=== PATIENT | female | born 1985 | race Caucasian/White ===

== ENCOUNTER 2020-09-02 10:16 | Outpatient (REF) | payer OTHER, SELFPAY | END 2020-09-02 10:17 | disposition home or self-care (01) | LOC: HO.LAB 10:16 | PROVIDERS: Visit Provider Internal Medicine | DX: Z20.828 Contact with and (suspected) exposure to other viral communicable diseases (principal) | CPT/HCPCS: C9803; U0003 ==

== ENCOUNTER 2020-09-26 08:43 | Outpatient (REF) | payer OTHER, SELFPAY | END 2020-09-26 08:44 | disposition home or self-care (01) | LOC: HO.LAB 08:43 | PROVIDERS: Visit Provider Internal Medicine | DX: Z20.828 Contact with and (suspected) exposure to other viral communicable diseases (principal) | CPT/HCPCS: C9803; U0003 ==

== ENCOUNTER 2020-10-25 10:59 | Outpatient (REF) | payer OTHER, SELFPAY | END 2020-10-25 11:00 | disposition home or self-care (01) | LOC: HO.LAB 10:59 | PROVIDERS: Visit Provider Internal Medicine | DX: Z20.828 Contact with and (suspected) exposure to other viral communicable diseases (principal) | CPT/HCPCS: 36415; C9803; U0003 ==

== ENCOUNTER 2020-11-03 12:39 | Outpatient (REF) | payer OTHER, SELFPAY | END 2020-11-03 12:40 | disposition home or self-care (01) | LOC: HO.LAB 12:39 | PROVIDERS: Visit Provider Internal Medicine | DX: Z20.822 Contact with and (suspected) exposure to COVID-19 (principal) | CPT/HCPCS: 36415; C9803; U0003 ==

== ENCOUNTER 2020-11-18 10:53 | Outpatient (REF) | payer OTHER, SELFPAY | END 2020-11-18 10:54 | disposition home or self-care (01) | LOC: HO.LAB 10:53 | PROVIDERS: Visit Provider Internal Medicine | DX: Z20.822 Contact with and (suspected) exposure to COVID-19 (principal) | CPT/HCPCS: 36415; C9803; U0003 ==

== ENCOUNTER 2020-11-21 14:03 | Outpatient (REF) | payer OTHER, SELFPAY | END 2020-11-21 14:04 | disposition home or self-care (01) | LOC: HO.LAB 14:03 | PROVIDERS: Visit Provider Internal Medicine | DX: Z20.822 Contact with and (suspected) exposure to COVID-19 (principal) | CPT/HCPCS: 36415; C9803; U0003; U0005 ==

== ENCOUNTER 2021-04-20 09:42 | Outpatient (REF) | payer OTHER, SELFPAY ==
[2021-04-20 15:18] LABS: CT PCR NOT DETECTED (Not Detect.); NG PCR NOT DETECTED (Not Detect.)
[2021-04-23 03:37] LABS: HPV mRNA E6/E7 rflx Not Detected (Not Detected)
== END 2021-04-20 09:43 | disposition home or self-care (01) ==
LOC: HO.LAB 09:42
PROVIDERS: PCP Internal Medicine; Visit Provider Advanced Practice Midwife
DX: Z01.419 Encounter for gynecological examination (general) (routine) without abnormal findings (principal); Z11.51 Encounter for screening for human papillomavirus (HPV); Z11.3 Encounter for screening for infections with a predominantly sexual mode of transmission; Z20.2 Contact with and (suspected) exposure to infections with a predominantly sexual mode of transmission; E66.9 Obesity, unspecified; Z68.37 Body mass index [BMI] 37.0-37.9, adult
CPT/HCPCS: 87491; 87591; 87624; 88142

== ENCOUNTER → 2021-04-27 09:05 | Outpatient (BNVA) | payer MEDICAID, SELFPAY | PROVIDERS: Visit Provider Advanced Practice Midwife ==

== ENCOUNTER 2021-06-15 07:51 | Outpatient (REF) | payer OTHER, SELFPAY ==
[2021-06-15 09:08] LABS: Hematocrit 39.9 % (37-47); Hemoglobin 12.6 g/dl (12.0-16.0); Mean Corpuscular HGB Conc 31.6 g/dl (31.0-35.0); Mean Corpuscular Hemoglobin 25.5 pg (27.0-33.0); Mean Corpuscular Volume 80.8 fL (80-98); Mean Platelet Volume 11.8 fL (9.4-12.3); Platelet Count 314 X10*3/uL (160-400); Red Blood Count 4.94 X10*6/uL (4.20-5.50); Red Cell Distribution Width 15.7 % (11.0-16.0); White Blood Count 9.4 X10*3/uL (4.8-10.8)
== END 2021-06-15 07:52 | disposition home or self-care (01) ==
LOC: HO.LAB 07:51
PROVIDERS: PCP Internal Medicine; Visit Provider Physician Assistant
DX: E66.9 Obesity, unspecified (principal); I10 Essential (primary) hypertension
CPT/HCPCS: 36415; 85027

== ENCOUNTER 2023-10-10 00:51 | Day surgery (SDC) | payer BC, SELFPAY ==
[2023-10-10] VITALS (13 sets, daily range): BP systolic 91–144; BP diastolic 44–76; PULSE 70–93; RESP 12–20; TEMP 36.3–36.7; O2SAT 95–100; BMI 32.4
--- NOTE | ~2023-10-10 | CT_ITS ---
EXAMINATION: CT ABDOMEN AND PELVIS WITH CONTRAST CLINICAL INFORMATION: Severe epigastric pain COMPARISON: None available. TECHNIQUE: Multidetector volumetric images were obtained from the superior aspect of the liver through the pubic symphysis following administration 85 mL of Omnipaque 350 intravenous contrast. Sagittal and coronal reformatted images were obtained on the technologist's workstation. Oral contrast: No This CT examination was performed using dose optimization techniques as appropriate, variously including the following: *Automated exposure control *Adjustment of mA and/or kV according to patient size (this includes techniques or standardized protocols for targeted exams where dose is matched to indication/reason for exam; i.e. extremities or head) *Use of iterative reconstruction technique DLP: 732 mGy-cm FINDINGS: LUNG BASES: The visualized lung bases are unremarkable. LIVER, GALLBLADDER, AND BILIARY TREE: The liver is normal in size, shape, and attenuation. No focal hepatic lesion. There is mild central intrahepatic biliary duct dilatation. Common bile duct measures up to 9 mm. There are couple surgical clips along the inferior aspect of the gallbladder. PANCREAS: Unremarkable. SPLEEN: Unremarkable. ADRENAL GLANDS: Unremarkable. KIDNEYS AND URETERS: The kidneys are normal in size, shape, and attenuation. No hydronephrosis, hydroureter, or calculi seen. No perinephric stranding. BLADDER: Unremarkable. GASTROINTESTINAL TRACT: The appendix is dilated up to 1.4 cm, fluid-filled with mucosal hyperemia and periappendiceal fat stranding compatible with acute appendicitis. Remainder of the gastrointestinal tract is unremarkable. ABDOMINAL WALL: No significant hernia is appreciated. LYMPH NODES: Normal. VASCULAR: Unremarkable. PELVIC VISCERA: Unremarkable. OSSEOUS STRUCTURES: Unremarkable. CT/CT abdomen pelvis w IV con IMPRESSION: * Acute uncomplicated appendicitis. * There are couple surgical clips along the inferior aspect of the gallbladder. Per report, patient had a gallstone removed but the gallbladder was left in place which would explain these rather unusual surgical clips. * There is mild dilatation of the common bile duct to 9 mm, greater than expected for patient age. Per report, the patient has normal LFTs. If there is concern for biliary pathology, consider nonemergent MRCP for further evaluation. Fleischner guidelines were followed. This critical result was discussed with Dr Chamberlain at 10/10/2023 3:09 AM and it was ascertained that the content and urgency of the report was understood at the time of direct communication.
--- NOTE | 2023-10-10 01:00 | ED_ITS ---
HPI - Abdominal Pain General Chief Complaint: Abdominal Pain Stated Complaint: Abdominal/back pain Time Seen by Provider: 10/10/23 01:00 Source: patient Mode of arrival: ambulatory Limitations: no limitations History of Present Illness HPI narrative: 37 yo female with PMH of arthritis, prior tubal ligation, prior stone removal from GB (many years ago in [place]) here with c/o severe epigastric pain radiating to the back that started 930pm. Ate a custard. Has had n/v. Tried tylenol PM but threw it up. No diarrhea, no fevers. Cannot get comfortable. MD elicited complaint: abdominal pain Pertinent past history: none Onset (ago): hour(s) (930pm) Pain Consistency: constant Location: epigastric Severity: severe Quality: stabbing Radiation: back Migration to: no migration Exacerbating factors: eating and movement Relieving factors: nothing Associated symptoms: nausea and vomiting Related Data Home Medications Medication Instructions Recorded Confirmed No Known Home Meds 04/27/21 04/27/21 Allergies Allergy/AdvReac Type Severity Reaction Status Date / Time No Known Allergies Allergy Verified 04/27/21 09:25 Review of Systems Review of Systems Constitutional : No Weight loss, No Fever, No Chills ENT/Mouth : No sore throat, No Rhinorrhea Eyes: No Swelling, No Redness Cardiovascular : No Chest Pain, No SOB, NoEdema Respiratory : No Cough, No Sputum, No Wheezing Gastrointestinal : Positive Nausea, Positive Vomiting, no Diarrhea, positive abdominal Pain, No Hematochezia, No Melena Genitourinary : No Dysuria, No Urinary Frequency, No Hematuria, No Urgency Musculoskeletal : No joint pain, No Myalgias, No Joint Swelling Skin : No Skin Lesions, No rash Neuro : No Weakness, No Numbness, No Dizziness, No Headache Psych : No Anxiety/Panic, No Depression Heme/Lymph: No Bruising, No Lymphadenopathy Endocrine : No Polyuria, No Polydipsia All other systems reviewed and are negative. [facility] Past Medical History Attestation statement: The following information was validated with the patient. Source: old records reviewed Medical History Arthritis Surgical History Hx of tubal ligation Family History Family History Mother Uterine cancer Social History Social History Alcohol intake: never Patient Tobacco Use Status: Former Tobacco user Smoked in Last 30 Days: No Use of substances other than those prescribed or required for medical reasons: No Advance Directives: No Advance Directives Information Provided: Yes Patient : No Gender identity: Female Physical Exam ED Vital Signs: Vital Signs - 24 hr 10/10/23 00:54 10/10/23 02:35 Temperature 97.4 F 98 F Pulse Rate 93 71 Respiratory Rate 20 12 Blood Pressure 144/63 H 115/63 Pulse Oximetry 100 99 Oxygen Delivery Method Room Air Room Air BMI result Body Mass Index 32.4 Appearance: Alert. Oriented X3. Pacing around room in pain mild acute distress. Eyes: Pupils equal, round and reactive to light. ENT: Pharynx normal. Neck: Normal inspection. Neck supple. CVS: Normal heart rate and rhythm. Pulses normal. Respiratory: No respiratory distress. Breath sounds normal. Abdomen: Soft and moderate epigastric pain but no rebound has pain on R side as well Skin: Skin warm and dry. Normal skin color. Normal skin turgor. Extremities: No lower extremity edema. No calf ttp Neuro: Oriented X 3. No motor deficit. No sensory deficit. Course Course Course Narrative: at this time infection suspected - zosyn ordered 308am Reevaluation(s) Reevaluation #1: feels better - repeat exam upper abdominal pain improved has RLQ pain pain improved with morphine Medical Decision Making Medical Decision Making MDM Narrative: 37 yo female with PMH of arthritis, prior tubal ligation, prior stone removal from GB but GB was not removed (many years ago in [place]) here with c/o severe epigastric pain radiating to back at this time will need basic labs, EKG, IV morphine for pain and CT scan for perforation, pancreatitis, could be just gastritis as well. Differential Diagnosis Differential Diagnoses: The differential diagnosis associated with the presentation includes pancreatitis, retained stone, perforation, gastritis, abdominal pain Admission/Observation Consideration of admission/observation: Escalation of care including admission/observation considered will admit overnight for surgical consultation Consult Healthcare Provider Management of the patient was discussed with: Rubber Down (surgery aware) Lab Data [facility] Lab Attestation statement: I reviewed the patient's lab results. 10/10/23 01:33 10/10/23 01:33 Labs: Lab Results 10/10/23 10/10/23 10/10/23 Range/Units 01:33 02:38 03:38 WBC 14.1 H (4.8-10.8) X10*3/uL RBC 4.74 (4.20-5.50) X10*6/uL Hgb 12.4 (12.0-16.0) g/dl Hct 37.5 (37.0-47.0) % MCV 79.1 L (80.0-98.0) fL MCH 26.2 L (27.0-33.0) pg MCHC 33.1 (31.0-35.0) g/dl RDW 14.3 (11.0-16.0) % Plt Count 406 H (160-400) X10*3/uL MPV 9.9 (9.4-12.3) fL Immature Gran % (Auto) 0.4 (0.0-0.4) % Neut % (Auto) 81.9 H (45-73) % Lymph % (Auto) 11.0 L (20-40) % [place] % (Auto) 5.5 (2-11) % Eos % (Auto) 0.8 (0-4) % Baso % (Auto) 0.4 (0-2) % Lymph # (Auto) 1.6 (1.2-4.9) X10*3/uL [place] # (Auto) 0.8 (0.1-1.2) X10*3/uL Eos # (Auto) 0.1 (0.0-0.4) X10*3/uL Baso # (Auto) 0.1 (0.0-0.2) X10*3/uL Abs Immat Gran (auto) 0.06 H (0.00-0.03) X10*3/uL Absolute Neuts (auto) 11.6 H (2.0-8.3) x10*3/uL Absolute Nucleated RBC 0.000 (0.0-0.012) X10*3/uL Nucleated RBC % (auto) 0.0 (0.0-0.2) /100WBC Sodium 138 (135-145) mmol/L Potassium 4.0 (3.3-5.1) mmol/L Chloride 103 (96-108) mmol/L Carbon Dioxide 25 (22-29) mmol/L Anion Gap 14 (12-20) BUN 16 (9-16) mg/dL Creatinine 0.86 (0.5-1.4) mg/dL Estim Creat Clear Calc 93.9 Estimated GFR > 60 Random Glucose 112 (60-115) mg/dL Lactic Acid 0.7 (0.5-2.0) mmol/L Calcium 9.7 (8.4-10.2) mg/dL Total Bilirubin 0.4 (0.0-1.0) mg/dL Direct Bilirubin 0.2 (0.0-0.5) mg/dL AST 17 (5-31) U/L ALT 15 (0-31) U/L Alkaline Phosphatase 58 (39-117) U/L Total Protein 8.0 (6.5-8.0) g/dL Albumin 4.4 (3.5-5.0) g/dL Lipase 15 (8-78) U/L Urine Color Dark Yellow Urine Appearance Clear Urine pH 6.5 (5.0-9.0) Ur Specific [place] >= 1.030 H (1.005-1.025) Urine Protein 100 (2+) H (Neg-Trace) mg/dL Urine Glucose (UA) Negative (Negative) mg/dL Urine Ketones 15 (Negative) mg/dL Urine Blood Negative (Negative) Urine Nitrite Negative (Negative) Ur Leukocyte Esterase Negative (Negative) Urine RBC 0-2 (0-2) /HPF Urine WBC 0-5 (0-5) /HPF Ur Squamous Epith Cells 6-10 (0-2) /HPF Urine Bacteria 1+ (None Seen) Hyaline Casts 0-2 (0-2) /LPF Urine Test NEGATIVE (NEGATIVE) Independent Interpretation I performed an independent interpretation of an: EKG and Ultrasound Interpretation: Rate: 79 Rhythm: NSR [place]: normal Normal P waves. Normal LUC. Normal QRS complex. ST T wave : no ADELIA, inverted t wave V1 qTC: normal prior studies: no acute ischemia The study has been interpreted contemporaneously by me. . Radiology Impression Discussion of test interpretation with radiology: I discussed test interpretation with the radiologist and I have reviewed the radiologist's reading. Radiologist Impression: call from Radiology 302am - acute appendicitis 1.4cm, inflammed periappendiceal inflammation clips along GB - GB is intact looks normal Independent Historian Clinical information obtained from an independent historian. History obtained from or confirmed by: Spouse External Record Review External record reviewed: Office record Medications Administered Generic Name Dose Route Start Last Admin Trade Name Freq PRN Reason Stop Dose Admin Sodium Chloride 1,000 mls @ 100 mls/hr 10/10/23 04:00 10/10/23 04:28 Ns IVCONT 100 mls/hr .Q10H FILOMENA Administration Discontinued Medications Generic Name Dose Route Start Last Admin Trade Name Freq PRN Reason Stop Dose Admin Famotidine 20 mg 10/10/23 01:06 10/10/23 01:22 Famotidine/Pf 20 Mg/2 Ml Vial IVPUSH 10/10/23 01:07 20 mg ONCE ONE Administration Sodium Chloride 1,000 mls @ 999 mls/hr 10/10/23 01:15 10/10/23 02:57 Ns IV 10/10/23 02:15 Infused .Q1H1M FILOMENA Infusion Sodium Chloride 1,000 mls @ 999 mls/hr 10/10/23 03:00 10/10/23 04:27 Ns IV 10/10/23 04:00 Infused .Q1H1M FILOMENA Infusion Piperacillin Sod/Tazobactam 50 mls @ 100 mls/hr 10/10/23 03:07 10/10/23 04:15 Sod 3.375 gm/ Sodium Chloride IV 10/10/23 03:36 Infused ONCE ONE Infusion Iohexol 85 ml 10/10/23 02:20 10/10/23 02:20 Iohexol 350 Mg/Ml 100 Ml Infus..Btl IV 10/10/23 02:21 85 ml ONCE ONE Administration Ketorolac Tromethamine 15 mg 10/10/23 01:06 10/10/23 01:22 Ketorolac Tromethamine 15 Mg/Ml Vial IVPUSH 10/10/23 01:07 15 mg ONCE ONE Administration Morphine Sulfate 4 mg 10/10/23 01:09 10/10/23 01:22 Morphine Sulfate 4 Mg/Ml Cartridge IVPUSH 10/10/23 01:10 4 mg ONCE ONE Administration Protocol Ondansetron HCl 4 mg 10/10/23 01:06 10/10/23 01:22 Ondansetron Hcl 4 Mg/2 Ml Vial IVPUSH 10/10/23 01:07 4 mg ONCE ONE Administration Critical Care Time Critical Care Time Critical Care Time: Yes Total Critical Care Time: 35 Attestation: pain improved with IV morphine, admission for appendicitis. I attest to this time spent taking care of the patient Discharge Plan Discharge Clinical Impression: Abdominal pain Qualifiers: Abdominal location: epigastric Qualified Code(s): R10.13 - Epigastric pain Acute appendicitis Qualifiers: Acute appendicitis type: with localized peritonitis Appendicitis gangrene presence: without gangrene Appendicitis perforation presence: without perforation Appendicitis abscess presence: without abscess Qualified Code(s): K 35.30 - Acute appendicitis with localized peritonitis, without perforation or gangrene Patient Disposition: Admitted As Inpatient
--- NOTE | 2023-10-10 01:11 | ECG_ITS ---
Test Reason : EPIGASTRIC PAIN Blood Pressure : / mmHG Vent. Rate : 079 BPM Atrial Rate : 079 BPM P-R Int : 152 ms QRS Dur : 082 ms QT Int : 372 ms P-R-T Axes : 076 068 030 degrees QTc Int : 426 ms Normal sinus rhythm Normal ECG No previous ECGs available Referred By: Eboni Chamberlain Electronically Signed By:JAIME CERVANTES MD
[2023-10-10] MEDS: Morphine Sulfate 4 MG/ML CARTRIDGE IVPUSH (01:22)
[2023-10-10] MEDS: Ketorolac Tromethamine 15 MG/ML VIAL IVPUSH (01:22)
[2023-10-10] MEDS: ondansetron HCL 4 MG/2 ML VIAL IVPUSH ×2 (01:22→06:40)
[2023-10-10] MEDS: Famotidine/PF 20 MG/2 ML VIAL IVPUSH (01:22)
[2023-10-10] MEDS: 0.9 % Sodium Chloride 1,000 ML 999 ML IV ×2 (01:22→02:58)
--- NOTE | 2023-10-10 01:30 | PC.NURSE ---
this rn assumed care of pt pt placed on secured entrance monitor iv placed in L AC. pt tolerated well. pt medicated according to mar pt spouse at bedside
[2023-10-10 01:38] LABS: MANUAL DIFF FLAG NO
[2023-10-10 01:39] LABS: Basophils Absolute Auto 0.1 X10*3/uL (0.0-0.2); Basophils Percent Auto 0.4 % (0-2); Eosinophils Absolute Auto 0.1 X10*3/uL (0.0-0.4); Eosinophils Percent Auto 0.8 % (0-4); Hematocrit 37.5 % (37.0-47.0); Hemoglobin 12.4 g/dl (12.0-16.0); Imm Gran Abs Auto 0.06 X10*3/uL (0.00-0.03); Imm Gran Pct Auto 0.4 % (0.0-0.4); Lymphocytes Absolute Auto 1.6 X10*3/uL (1.2-4.9); Mean Corpuscular HGB Conc 33.1 g/dl (31.0-35.0); Mean Corpuscular Hemoglobin 26.2 pg (27.0-33.0); Mean Corpuscular Volume 79.1 fL (80.0-98.0); Mean Platelet Volume 9.9 fL (9.4-12.3); Monocytes Absolute Auto 0.8 X10*3/uL (0.1-1.2); Monocytes Percent Auto 5.5 % (2-11); Neutrophils Absolute Auto 11.6 x10*3/uL (2.0-8.3); Neutrophils Percent Auto 81.9 % (45-73); Platelet Count 406 X10*3/uL (160-400); Red Blood Count 4.74 X10*6/uL (4.20-5.50); Red Cell Distribution Width 14.3 % (11.0-16.0); White Blood Count 14.1 X10*3/uL (4.8-10.8)
[2023-10-10 01:55] LABS: Alanine Aminotransferase 15 U/L (0-31); Albumin Level 4.4 g/dL (3.5-5.0); Alkaline Phosphatase 58 U/L (39-117); Anion Gap 14 (12-20); Aspartate Amino Transferase 17 U/L (5-31); Bilirubin Direct 0.2 mg/dL (0.0-0.5); Bilirubin Total 0.4 mg/dL (0.0-1.0); Blood Urea Nitrogen 16 mg/dL (9-16); Calcium 9.7 mg/dL (8.4-10.2); Carbon Dioxide 25 mmol/L (22-29); Chloride 103 mmol/L (96-108); Creatinine Clr Calc Pharmacy 93.9; Estimated Glomerular Filt Rate > 60; Glucose Random 112 mg/dL (60-115); Lipase 15 U/L (8-78); Sodium 138 mmol/L (135-145)
[2023-10-10] MEDS: iohexoL 350 MG/ML 100 ML INFUS..BTL 85 ML IV (02:20)
[2023-10-10 02:45] LABS: Appearance Urine Clear; Color Urine Dark Yellow; Glucose Urine UA Negative (Negative); Leukocyte Esterase Urine Negative (Negative); Nitrite Urine Negative (Negative); PH 6.5 (5.0-9.0); Specific Gravity - Urine >= 1.030 (1.005-1.025); UMIC TRIGGER UACC YES; Urine Blood Negative (Negative); Urine Ketones 15 mg/dL (Negative); Urine Protein 100 (2+) mg/dL (Neg-Trace)
[2023-10-10 02:47] LABS: UPreg QC Valid YES; Urine Pregnancy NEGATIVE (NEGATIVE)
[2023-10-10 02:50] LABS: Bacteria Urine 1+ (None Seen); Hyaline Casts Urine 0-2 /LPF (0-2); RBC Urine 0-2 /HPF (0-2); WBC Urine 0-5 /HPF (0-5)
[2023-10-10] MEDS: Piperacillin Sodium/Tazobactam 3.375 GM in 0.9 % Sodium Chloride 50 ML IV ×2 (03:40→08:42)
[2023-10-10 03:53] LABS: Lactic Acid 0.7 mmol/L (0.5-2.0)
[2023-10-10] MEDS: 0.9 % Sodium Chloride 1,000 ML 100 ML IVCONT (04:28)
--- NOTE | 2023-10-10 05:00 | PC.NURSE ---
lights dimmed pt denies pain at this time. pt encouraged to rest educated on use of call morris setswana interpreture utilized
[2023-10-10] MEDS: Ketorolac Tromethamine 30 MG/ML VIAL IVPUSH (06:40)
--- NOTE | 2023-10-10 07:29 | PC.NURSE ---
Patient resting comfortably on stretcher, respirations equal and unlabored. Patient NPO for planned surgery later today, patient aware of plan. Call morris within reach.
[2023-10-10] MEDS: Acetaminophen 1,000 MG/100 ML PIGGYBACK 400 MG IV (07:54)
--- NOTE | 2023-10-10 08:17 | PHA.MEDREC ---
Pharmacy Consult ? Medication Reconciliation Pharmacy has completed the medication reconciliation.
--- NOTE | 2023-10-10 09:08 | PM.HPGS ---
History of Present Illness History of Present Illness Date of Service: 10/10/23 Chief complaint: Abdo pain Narrative: Alanis Sanon is a 37 year old female , relatively healthy, presents with approximately 1 day history of progressively worsening epigastric discomfort which relocated to the right lower quadrant. Because of progression of symptoms, patient presented to the emergency department. Workup including CT scan demonstrated findings consistent with acute appendicitis. Chart was reviewed patient evaluated. Past surgical history laparoscopic cholecystectomy PMFSH Past Medical History Medical History Arthritis Family History Family History Mother Uterine cancer Surgical History Surgical History Hx of tubal ligation Social History Social History Alcohol intake: never Patient Tobacco Use Status: Former Tobacco user Smoked in Last 30 Days: No Use of substances other than those prescribed or required for medical reasons: No Advance Directives: No Advance Directives Information Provided: Yes Patient : No Gender identity: Female Meds Allergies Allergy/AdvReac Type Severity Reaction Status Date / Time No Known Allergies Allergy Verified 04/27/21 09:25 Active Medications: Current Medications Acetaminophen (Acetaminophen 325 Mg Tablet) 650 mg PO Q6H PRN PRN Reason: Pain, Mild (Pain Scale 1-3) Sodium Chloride (Ns) 1,000 mls @ 100 mls/hr IVCONT .Q10H [facility] Last Admin: 10/10/23 04:28 Dose: 100 mls/hr Piperacillin Sod/Tazobactam (Sod 3.375 gm/ Sodium Chloride) 50 mls @ 100 mls/hr IV 0000,0800,1600 [facility] Last Admin: 10/10/23 08:42 Dose: 100 mls/hr Ketorolac Tromethamine (Ketorolac Tromethamine 30 Mg/Ml Vial) 30 mg IVPUSH Q6H PRN PRN Reason: Pain, Moderate(Pain Scale 4-6) Stop: 10/15/23 03:54 Last Admin: 10/10/23 06:40 Dose: 30 mg Ondansetron HCl (Ondansetron Hcl 4 Mg/2 Ml Vial) 4 mg IVPUSH Q8H PRN PRN Reason: Nausea and Vomiting Last Admin: 10/10/23 06:40 Dose: 4 mg Sodium Chloride (0.9 % Sodium Chloride Flush 3 Ml Syringe) 3 ml IVFLUSH QSHIFT [facility] Last Admin: 10/10/23 07:32 Dose: Not Given Home Medications Medication Instructions Recorded Confirmed Last Taken Type No Known Home Meds 04/27/21 10/10/23 Unknown History Physical Exam Vital Signs: Vital Signs: Last Vital Signs Temp 97.9 F 10/10/23 06:02 Pulse 70 10/10/23 06:02 Resp 18 10/10/23 06:02 BP 106/67 10/10/23 06:02 Pulse Ox 99 10/10/23 02:35 O2 Del Method Room Air 10/10/23 06:02 BMI result Body Mass Index 32.4 Chest: Other: chest breath sounds bilaterally, HS 1 in 2 GI: Other: abdomen very corpulent. Marked right lower quadrant localized rebound tenderness. Remain abdomen benign. Results Results Labs: Short CBC 10/10/23 Range/Units 01:33 WBC 14.1 H (4.8-10.8) X10*3/uL Hgb 12.4 (12.0-16.0) g/dl Hct 37.5 (37.0-47.0) % Plt Count 406 H (160-400) X10*3/uL BMP 10/10/23 01:33 Sodium 138 Potassium 4.0 Chloride 103 Carbon Dioxide 25 BUN 16 Creatinine 0.86 Calcium 9.7 Liver Function 10/10/23 Range/Units 01:33 Total Bilirubin 0.4 (0.0-1.0) mg/dL Direct Bilirubin 0.2 (0.0-0.5) mg/dL AST 17 (5-31) U/L ALT 15 (0-31) U/L Alkaline Phosphatase 58 (39-117) U/L Albumin 4.4 (3.5-5.0) g/dL Urine 10/10/23 Range/Units 02:38 Urine Color Dark Yellow Urine Appearance Clear Urine pH 6.5 (5.0-9.0) Ur Specific [place] >= 1.030 H (1.005-1.025) Urine Protein 100 (2+) H (Neg-Trace) mg/dL Urine Glucose (UA) Negative (Negative) mg/dL Urine Test NEGATIVE (NEGATIVE) Assessment and Plan (1) Acute appendicitis: Qualifiers: Acute appendicitis type: with localized peritonitis Appendicitis abscess presence: without abscess Appendicitis gangrene presence: without gangrene Appendicitis perforation presence: without perforation Qualified Code(s): K35.30 - Acute appendicitis with localized peritonitis, without perforation or gangrene Status: Acute Plan Risks, benefits, alternatives of laparoscopic possible open cholecystectomy reviewed with the patient and included but not limited to bleeding, infection, numbness, pain, scarring, bowel or bladder injury or leak and the patient wished to proceed. All questions answered. Arrangements were made for this as an add on case for today. Quality Stroke Does the patient have a stroke diagnosis?: No VTE Prior VTE?: No VTE Risk Level:: Surgical - low VTE Device Contraindication: N/A - Device Ordered VTE Drug Contraindication: N/A - Med Ordered Procedures Date of Service Date of Service: 10/10/23
--- NOTE | 2023-10-10 12:00 | PC.NURSE ---
spoke to main desk at surgery - plan is for [id number] to the OR.
--- NOTE | 2023-10-10 13:33 | P.CONAN_ITS ---
HPI - Anesthesia Eval Consult details Narrative: for sri HANSENSH Active Problems Active Problems: All Active Problems (Updated 10/10/23 @ 03:09 by Eboni Chamberlain DO) Acute appendicitis (Acute) Abdominal pain (Acute) Obesity (Acute) Encounter for annual routine gynecological examination (Acute) Past Medical History Medical History Arthritis Family History Family History Mother Uterine cancer Family history of problems with anesthesia: No Surgical History Surgical History Hx of cholecystectomy Hx of section Hx of tubal ligation History of Problems with Anesthesia: No Social History Social History Alcohol intake: never Patient Tobacco Use Status: Former Tobacco user Quit Date: 2016 Smoked in Last 30 Days: No Use of substances other than those prescribed or required for medical reasons: No Are you DNR?: No Advance Directives: No Advance Directives Information Provided: Yes Patient : No Gender identity: Female Meds Allergies Allergy/AdvReac Type Severity Reaction Status Date / Time No Known Allergies Allergy Verified 10/10/23 13:19 Active Medications: Current Medications Acetaminophen (Acetaminophen 325 Mg Tablet) 650 mg PO Q6H PRN PRN Reason: Pain, Mild (Pain Scale 1-3) Sodium Chloride (Ns) 1,000 mls @ 100 mls/hr IVCONT .Q10H [facility] Last Admin: 10/10/23 04:28 Dose: 100 mls/hr Piperacillin Sod/Tazobactam (Sod 3.375 gm/ Sodium Chloride) 50 mls @ 100 mls/hr IV 0000,0800,1600 [facility] Last Infusion: 10/10/23 10:06 Dose: Infused Ketorolac Tromethamine (Ketorolac Tromethamine 30 Mg/Ml Vial) 30 mg IVPUSH Q6H PRN PRN Reason: Pain, Moderate(Pain Scale 4-6) Stop: 10/15/23 03:54 Last Admin: 10/10/23 06:40 Dose: 30 mg Ondansetron HCl (Ondansetron Hcl 4 Mg/2 Ml Vial) 4 mg IVPUSH Q8H PRN PRN Reason: Nausea and Vomiting Last Admin: 10/10/23 06:40 Dose: 4 mg Sodium Chloride (0.9 % Sodium Chloride Flush 3 Ml Syringe) 3 ml IVFLUSH QSHIFT [facility] Last Admin: 10/10/23 07:32 Dose: Not Given Home Medications Medication Instructions Recorded Confirmed Last Taken Type No Known Home Meds 04/27/21 10/10/23 Unknown History Exam Height,Weight and Vital Signs: Height 5 ft 4 in Weight 85.7 kg Last Vital Signs Temp 97.9 F 10/10/23 13:13 Pulse 81 10/10/23 13:13 Resp 15 10/10/23 13:13 BP 141/76 H 10/10/23 13:13 Pulse Ox 99 10/10/23 13:13 O2 Del Method Room Air 10/10/23 13:13 Pertinent Lab Results Pertinent Lab Results: Laboratory Tests 10/10/23 10/10/23 10/10/23 01:33 02:38 03:38 WBC 14.1 H RBC 4.74 Hgb 12.4 Hct 37.5 MCV 79.1 L MCH 26.2 L MCHC 33.1 RDW 14.3 Plt Count 406 H MPV 9.9 Immature Gran % (Auto) 0.4 Neut % (Auto) 81.9 H Lymph % (Auto) 11.0 L [place] % (Auto) 5.5 Eos % (Auto) 0.8 Baso % (Auto) 0.4 Lymph # (Auto) 1.6 [place] # (Auto) 0.8 Eos # (Auto) 0.1 Baso # (Auto) 0.1 Abs Immat Gran (auto) 0.06 H Absolute Neuts (auto) 11.6 H Absolute Nucleated RBC 0.000 Nucleated RBC % (auto) 0.0 Sodium 138 Potassium 4.0 Chloride 103 Carbon Dioxide 25 Anion Gap 14 BUN 16 Creatinine 0.86 Estim Creat Clear Calc 93.9 Estimated GFR > 60 Random Glucose 112 Lactic Acid 0.7 Calcium 9.7 Total Bilirubin 0.4 Direct Bilirubin 0.2 AST 17 ALT 15 Alkaline Phosphatase 58 Total Protein 8.0 Albumin 4.4 Lipase 15 Urine Color Dark Yellow Urine Appearance Clear Urine pH 6.5 Ur Specific [place] >= 1.030 H Urine Protein 100 (2+) H Urine Glucose (UA) Negative Urine Ketones 15 Urine Blood Negative Urine Nitrite Negative Ur Leukocyte Esterase Negative Urine RBC 0-2 Urine WBC 0-5 Ur Squamous Epith Cells 6-10 Urine Bacteria 1+ Hyaline Casts 0-2 Urine Test NEGATIVE Airway Mallampati Class: II TM Dist: >3cm Neck ROM: Full Heart: rrr Lungs: cta Assessment and Plan Assessment Anesthesia Assessment: Anesthesia Plan Discussed and Chart Reviewed Final Anesthetic Review Family History of Problems with Anesthesia: No History of Problems with Anesthesia: No ASA Class: I Final Preanesthetic Review: No Changes in Pt Med Stat, Meds/Allgs Chart Reviewed, Consent Obtained/Reviewed and Anes Risks/Benef Reviewed Patient Risk: Low Procedure Risk: Low Anesthetic Plan Anesthetic Plan: GA Disposition: Standard PACU
--- NOTE | 2023-10-10 14:30 | W.PM.OPN ---
Operative Note Operative Note Date of Service: 10/10/23 Narrative: Preoperative diagnosis: [] acute appendicitis Postop diagnosis: [] same Procedure [] laparoscopic appendectomy Surgeon: [] Grady Manager Technical Services: [] Bridgett Type of Anesthesia: [] general Indication for surgery: [] edematous inflamed appendix. No gross evidence of perforation. Findings: [] Patient brought to the operating room, placed on operative table supine position, after adequate level of general anesthesia was induced, the patient's abdomen, which was moderately corpulent, was prepped and draped in usual sterile fashion. Using a supraumbilical curvilinear incision, De Paz technique was used to insufflate the abdominal cavity to 15 mm of CO2. The lower midline And suprapubic ports were placed under direct laparoscopic view, and the patient placed in Trendelenburg position, tilted to the left. Findings were as noted above. Appendix was grasped using laparoscopic graspers and brought onto the field. Its mesentery was sequentially taken down using double firing of ligature device. Appendix was then transected at the cecal base using endoscopic GABY stapler. Specimen was placed in an Endo-Catch bag, and retrieved through the umbilical port. Abdominal cavity was very copiously irrigated , and secured hemostasis. All ports were removed under direct laparoscopic view. Wounds were closed in the following manner; umbilical wound had is fascia reapproximated using interrupted 0 Vicryl sutures. Skin wounds were closed using subcuticular 4-0 Vicryl sutures followed by Steri-Strips and sterile dressings. Wounds were infiltrated 0.5% Marcaine at completion. Sponge, needle, and instrument counts reported correct. Patient tolerated the procedure well and emerged anesthesia in stable condition . EBL minimal
--- NOTE | 2023-10-10 16:10 | MHC.CM.PN ---
PT DISCHARGED HOME WITH NO SERVICES PRIOR TO BEING SEEN BY CM PER EMR, PT INDEPENDENT WITH CARE PT TO ARRANGE TRANSPORT
== END 2023-10-10 16:45 | disposition home or self-care (01) ==
LOC: HO.ED 03:09 → HO.EDOVER 07:17 → HO.SSS 16:19
PROVIDERS: Emergency Provider Emergency Medicine; PCP Internal Medicine; Visit Provider Surgery
PROC: 0DTJ4ZZ Resection of Appendix, Percutaneous Endoscopic Approach (ICD-10-PCS; CPT 44970; principal; 2023-10-10 13:00)
DX: K35.30 Acute appendicitis with localized peritonitis, without perforation or gangrene (principal); R10.13 Epigastric pain; E66.9 Obesity, unspecified; Z68.32 Body mass index [BMI] 32.0-32.9, adult; Z98.51 Tubal ligation status; Z87.891 Personal history of nicotine dependence
CPT/HCPCS: 44970; 36415; 74177; 80048; 80076; 81001; 81025; 83605; 83690; 85025; 87040; 87076; 87185; 87205; 88304; 93005; 96361; 96365; 96375; 99285; J0131; J1100; J1885; J2250; J2270; J2405; J2543; J2704; J2795; J3010; Q9967

== ENCOUNTER → 2023-10-10 01:11 | Outpatient (BNV) | payer BC, SELFPAY | PROVIDERS: Admitting Provider Surgery; Emergency Provider Emergency Medicine; PCP Internal Medicine; Visit Provider Internal Medicine Cardiovascular Disease | DX: R10.13 Epigastric pain (principal) | CPT/HCPCS: 93010 ==

== ENCOUNTER → 2023-10-10 03:55 | Outpatient (BNV) | payer BC, SELFPAY | PROVIDERS: Admitting Provider Surgery; Emergency Provider Emergency Medicine; PCP Internal Medicine; Visit Provider Surgery | DX: K35.30 Acute appendicitis with localized peritonitis, without perforation or gangrene (principal) | CPT/HCPCS: 44970; 99285 ==

== ENCOUNTER 2023-10-15 10:33 | Emergency (ER) | payer BC, SELFPAY ==
[2023-10-15 10:44] VITALS: BP 147/77; PULSE 83; RESP 16; TEMP 36.8; O2SAT 98; BMI 33.8
[2023-10-15 11:40] LABS: Basophils Absolute Auto 0.1 X10*3/uL (0.0-0.2); Basophils Percent Auto 0.6 % (0-2); Eosinophils Absolute Auto 0.2 X10*3/uL (0.0-0.4); Eosinophils Percent Auto 2.8 % (0-4); Hemoglobin 11.9 g/dl (12.0-16.0); Imm Gran Abs Auto 0.02 X10*3/uL (0.00-0.03); Imm Gran Pct Auto 0.2 % (0.0-0.4); Lymphocytes Absolute Auto 1.9 X10*3/uL (1.2-4.9); Lymphocytes Percent Auto 23.2 % (20-40); MANUAL DIFF FLAG SCAN; Mean Corpuscular HGB Conc 32.2 g/dl (31.0-35.0); Mean Corpuscular Hemoglobin 25.9 pg (27.0-33.0); Mean Corpuscular Volume 80.6 fL (80.0-98.0); Monocytes Absolute Auto 0.6 X10*3/uL (0.1-1.2); Monocytes Percent Auto 7.8 % (2-11); Neutrophils Absolute Auto 5.3 x10*3/uL (2.0-8.3); Neutrophils Percent Auto 65.4 % (45-73); PLT CLUMP 1; Red Blood Count 4.59 X10*6/uL (4.20-5.50); Red Cell Distribution Width 14.4 % (11.0-16.0); SCAN SMEAR FLAG 1
[2023-10-15 11:41] LABS: White Blood Count 8.1 X10*3/uL (4.8-10.8)
[2023-10-15 11:47] LABS: Lactic Acid 1.1 mmol/L (0.5-2.0)
[2023-10-15 11:48] LABS: Anion Gap 13 (12-20); Blood Urea Nitrogen 11 mg/dL (9-16); Calcium 9.8 mg/dL (8.4-10.2); Carbon Dioxide 26 mmol/L (22-29); Chloride 105 mmol/L (96-108); Creatinine Clr Calc Pharmacy 111.4; Estimated Glomerular Filt Rate > 60; Glucose Random 84 mg/dL (60-115); Potassium 4.2 mmol/L (3.3-5.1); Sodium 140 mmol/L (135-145)
[2023-10-15 11:59] LABS: Platelet Count 359 X10*3/uL (160-400)
[2023-10-15 12:00] LABS: SLIDE REVIEW VERIFIED
--- NOTE | 2023-10-15 15:13 | ED_ITS ---
HPI - Recheck/Abnormal Lab/Rx General Chief Complaint: Recheck/Abnormal Lab/Rx Stated Complaint: Protein Test Redone Time Seen by Provider: 10/15/23 15:13 Source: patient and family () Mode of arrival: ambulatory Limitations: no limitations History of Present Illness HPI narrative: 37 year old female with 1 week s/p appendectomy presents to the ED after receiving a call advising her to return to the ED for positive blood cultures. She does not have any complains at presents. States that she has been recovering well from her appendectomy. Has not had a follow up appointment from surgery. Denies fever, chills, nausea, vomiting, rashes. at bedside to interpret as patient is Romanian speaking. Related Data Previous Rx's Medication Instructions Recorded docusate sodium 100 mg capsule 100 mg PO BID PRN constipation #30 10/10/23 (Colace) caps hydrocodone 5 mg-acetaminophen 325 1 tab PO Q4-6H PRN pain #30 tabs 10/10/23 mg tablet Allergies Allergy/AdvReac Type Severity Reaction Status Date / Time No Known Allergies Allergy Verified 10/15/23 10:44 Review of Systems 2 Review of Systems: Constitutional: No fever, chills, fatigue, night sweats, weight changes ENT/Mouth: No ear pain, hearing loss, nasal congestion, sinus pain, rhinorrhea, sore throat Eyes: No eye pain, swelling, redness, vision changes, discharge Cardio: No chest pain, palpitations, BOYD, orthopnea, peripheral edema Pulm: No SOB, cough, sputum, wheezing, dyspnea, hemoptysis GI: No nausea, vomiting, hematemesis, abdominal pain, diarrhea, constipation, hematochezia, melena : No irregular bleeding, dysuria, frequency, urgency, hesitancy, hematuria, flank pain, urinary flow changes, urinary incontinence or retention MSK: No back pain, neck pain, joint pain, myalgias Skin: No lesions, rashes Neuro: No weakness, numbness, paresthesias, LOC, dizziness, headache All other systems reviewed and are negative. [facility] Past Medical History Medical History Hx of gallstones Arthritis Surgical History Hx of section Hx of tubal ligation Family History Family History Mother Uterine cancer Social History Social History Alcohol intake: never Patient Tobacco Use Status: Former Tobacco user Quit Date: 2016 Advance Directives: No Advance Directives Information Provided: No Gender identity: Female Physical Exam 2 Vital Signs: Vital Signs: Last Vital Signs Temp 98.3 F 10/15/23 10:44 Pulse 83 10/15/23 10:44 Resp 16 10/15/23 10:44 BP 147/77 H 10/15/23 10:44 Pulse Ox 98 10/15/23 10:44 O2 Del Method Room Air 10/15/23 10:44 BMI result Body Mass Index 33.8 vital signs stable. afebrile. normotensive. Const: General: cooperative, healthy appearing, comfortable, no acute distress, alert, awake and Physically active Orientation/consciousness: p atient oriented x3 Limitations: no limitations Eyes: General: appearance normal, both eyes and all related structures Resp: Effort & Inspection: normal respiratory effort and able to speak in complete sentences Auscultation: clear to auscultation bilaterally Cardio: Rate: regular rate Rhythm: regular rhythm Peripheral pulses: P eripheral pulses 2+ throughout GI: Other: + Surgical scar noted to umbilical regio n, clean dry intact. No discharge from the area. No surrounding erythema. No palpable warmth or fluctuance. Abdomen soft, mildly tender around the umbilical region and right lower quadrant. Palpation (GI): Soft to palpation Skin: General skin exam: no rashes or lesions noted Neuro: General: patient oriented x3 and gait normal Course Course Course Narrative: 1520--patient was called back to ED due to 1 out of 2 blood cultures returning positive for gram negative rods. She had labs redrawn today which show a CBC without leukocytosis or anemia. A stable H&H. No acute electrolyte abnormalities requiring intervention. Lactic WNL. Blood cultures are currently pending. >> given patient is asymptomatic, vital signs are stable, she has no complaints, and only 1 out of 2 blood cultures return positive, this is likely contamination. I feel safe to discharge patient home with blood cultures pending. Advised patient and that we will call her regarding blood culture results. Patient and are agreeable with this. Patient has remained stable throughout ED visit today. Discussed strict return precautions. All questions answered at this time. Patient is agreeable with disposition and stable for discharge. Medical Decision Making Medical Decision Making [facility] Narrative: 37 year old female with 1 week s/p appendectomy presents to the ED after receiving a call advising her to return to the ED for positive blood cultures. Vital signs are stable, afebrile, normotensive. She is nontoxic appearing and in no acute distress. Surgical scar noted to umbilical region, clean dry intact. No discharge from the area. No surrounding erythema. No palpable warmth or fluctuance. Abdomen soft, mildly tender around the umbilical region and right lower quadrant. Plan for repeat labs and blood cultures x2. Differential Diagnosis Differential Diagnoses: The differential diagnosis associated with the presentation includes As above. Admission/Observation Consideration of admission/observation: Escalation of care including admission/observation considered In this patient who was called back to the ED due to positive blood cultures, admission was considered. Lab Data [facility] Lab Attestation statement: I reviewed the patient's lab results. As above. 10/15/23 11:24 10/15/23 11:24 Labs: Lab Results 10/15/23 Range/Units 11:24 WBC 8.1 (4.8-10.8) X10*3/uL RBC 4.59 (4.20-5.50) X10*6/uL Hgb 11.9 L (12.0-16.0) g/dl Hct 37.0 (37.0-47.0) % MCV 80.6 (80.0-98.0) fL MCH 25.9 L (27.0-33.0) pg MCHC 32.2 (31.0-35.0) g/dl RDW 14.4 (11.0-16.0) % Plt Count 359 (160-400) X10*3/uL MPV Not Reportable Immature Gran % (Auto) 0.2 (0.0-0.4) % Neut % (Auto) 65.4 (45-73) % Lymph % (Auto) 23.2 (20-40) % [place] % (Auto) 7.8 (2-11) % Eos % (Auto) 2.8 (0-4) % Baso % (Auto) 0.6 (0-2) % Lymph # (Auto) 1.9 (1.2-4.9) X10*3/uL [place] # (Auto) 0.6 (0.1-1.2) X10*3/uL Eos # (Auto) 0.2 (0.0-0.4) X10*3/uL Baso # (Auto) 0.1 (0.0-0.2) X10*3/uL Abs Immat Gran (auto) 0.02 (0.00-0.03) X10*3/uL Absolute Neuts (auto) 5.3 (2.0-8.3) x10*3/uL Absolute Nucleated RBC 0.000 (0.0-0.012) X10*3/uL Nucleated RBC % (auto) 0.0 (0.0-0.2) /100WBC Smear Tech's Comments VERIFIED Sodium 140 (135-145) mmol/L Potassium 4.2 (3.3-5.1) mmol/L Chloride 105 (96-108) mmol/L Carbon Dioxide 26 (22-29) mmol/L Anion Gap 13 (12-20) BUN 11 (9-16) mg/dL Creatinine 0.74 (0.5-1.4) mg/dL Estim Creat Clear Calc 111.4 Estimated GFR > 60 Random Glucose 84 (60-115) mg/dL Lactic Acid 1.1 (0.5-2.0) mmol/L Calcium 9.8 (8.4-10.2) mg/dL Independent Historian Clinical information obtained from an independent historian. History obtained from or confirmed by: Spouse () External Record Review External record reviewed: Inpatient record, Office record, Outpatient record, Prior outpatient labs, Prior outpatient radiology, Primary care record and Outside ED record Social Determinants Patient?s care significantly limited by Social Determinants of Health including: Other Social Determinant of Health Discharge Plan Discharge Clinical Impression: Abnormal laboratory test result Patient Disposition: Home, Self-Care Instructions: Laparoscopic Appendectomy (DC) Additional Instructions: Your labs today are normal. Your scar looks like it is healing well. You will be called with blood culture results. Please follow-up with your surgeon this week for a postop check. If you develop fever, warmth or redness around the surgical site, or drainage, please return to the ED. In the case of an emergency call 911. Prescriptions: No Action hydrocodone-acetaminophen 5-325 mg tablet 1 tab PO Q4-6H PRN (Reason: pain) Qty: 30 0RF Rx Instructions: Partial Fill upon patient request. docusate sodium [Colace] 100 mg capsule 100 mg PO BID PRN (Reason: constipation) Qty: 30 0RF Referrals: Stefan Downing MD [Primary Care Provider] - Interventions: ED Discharge Assessment Last Done: 10/15/23 15:41 Discharge Date/Time: 10/15/23 15:41 Print Language: Romanian
== END 2023-10-15 15:41 | disposition home or self-care (01) ==
PROVIDERS: Physician Assistant Medical; Emergency Provider Emergency Medicine; PCP Internal Medicine
DX: R79.89 Other specified abnormal findings of blood chemistry (principal); Z79.899 Other long term (current) drug therapy
CPT/HCPCS: 36415; 80048; 83605; 85025; 87040; 99282; 99283

== ENCOUNTER 2023-11-05 13:19 | Outpatient (AMB) | payer BC, SELFPAY ==
[2023-11-05 13:20] VITALS: BP 138/80; PULSE 74; O2SAT 99; BMI 31.3
--- NOTE | 2023-11-05 13:20 | A.OFFPC_ITS ---
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 Accompanied by: Self / Same As Patient Allergies No Known Allergies [No Known Allergies*] Allergy (Verified 11/05/23 14:01) Medication List - Last Reconciled 11/05/23 by Stefan Downing MD docusate sodium (Colace) 100 mg PO BID PRN Tobacco use date assessed: 11/05/23 Dental Screening Dental Screen Date: 11/05/23 Did you have a dental visit in the last 12 months?: Yes Did you have a dental problem in the last 6 months where you did not have access to dental care?: No Was dental information given to patient?: Patient has dentist HPI Belly Button Discomfort/Pain/Odor HPI Details Patient comes in today complaining of recurrent pain and discomfort over her umbilical area for the past 4 to 5 days Notes that the inner margin of her umbilicus is sometimes moist so she is concerned that there could be some discharge from her recent incision there Patient underwent a laparoscopic appendectomy at [facility] [place] a few weeks ago on 10/10/[address] Rasmussen for acute appendicitis States that she does not have any follow up appt scheduled with Dr. Rasmussen post- op Patient also relates experiencing some recurrent pain and discomfort over her right abdominal area over the past few days States that she has been constipated lately Has Colace Rx at home that she was supposed to be taking BID PRN but admits that she has not taken it at all lately She denies any fever or chills; denies any headaches or dizziness Denies any chest pains, no SOB No nausea/vomiting and denies any acute urinary symptoms PFSH Medical History Obesity (BMI 30-39.9) Elevated blood pressure reading Rheumatoid arthritis Surgical History History of laparoscopic appendectomy (~10/10/23) History of section History of tubal ligation History of cholecystectomy Family History Father No problems noted. Mother Ovarian cancer Diabetes Hypertension Maternal Grandmother Mental health disorder Maternal Uncle Mental health disorder Social History Housing: House Alcohol intake: never Patient Tobacco Use Status: Never used Tobacco e-Cigarette/Vaping Use: Never Used Second Hand Smoke Exposure: No service: No Current occupational status: employed Cognitive needs: No Hearing needs: No Vision needs: No Questionnaire PHQ-9 Over the last 2 weeks, how often have you been bothered by any of the following problems? 1. Little interest or pleasure in doing things: not at all 2. Feeling down, depressed, or hopeless: not at all 3. Trouble falling or staying asleep, or sleeping too much: not at all 4. Feeling tired or having little energy: not at all 5. Poor appetite or overeating: not at all 6. Feeling bad about yourself - or that you are a failure or have let yourself or your family down: not at all 7. Trouble concentrating on things, such as reading the newspaper or watching television: not at all 8. Moving or speaking so slowly that other people could have noticed. Or the opposite - being so fidgety or restless that you have been moving around a lot more than usual: not at all 9. Thoughts that you would be better off or of hurting yourself in some way: not at all Total score: 0 Depression Screening Interpretation: Negative Depression Screening Done: Yes 51626 - PHQ-9 Billing: Yes Source: Developed by Drs. Jose Streeter, Elizabeth Hutton, Mauricio Ayon and colleagues, with an educational tyson from [employer]. Thrive Questionnaire Date Thrive assessed: 11/05/23 I am a: Patient What is your living situation today?: I have a steady place to live Within the past 12 months, did the food you bought not last and you didn't have the money to get more?: Never true Within the past 12 months, did you worry whether your food would run out before you got money to buy more?: Never true Do you have trouble paying for medicines?: No Do you have trouble getting transportation to medical appointments?: No Do you have trouble paying your heating and electricity bill?: No Do you have trouble taking care of your child, family member or friend?: No Do you have trouble with day-to-day activities such as bathing, preparing meals, shopping, managing finances, etc.?: No Are you currently unemployed and looking for a job?: No Are you interested in more education?: No Please select the resources that you would like help with: None Currently or been in a relationship where the following occur: no concerns reported AUDIT C Alcohol Use Questionnaire (AUDIT-C) 1. How often do you have a drink containing alcohol?: Never Total Score: 0 Score Reviewed/Action Taken: Yes SHAWNA-7 AMB Questionnaire SHAWNA-7 Date SHAWNA - 7 assessed: 11/05/23 Feeling nervous, anxious, or on edge: 0 = Not at all Not being able to stop or control worryin = Not at all Worrying too much about different things: 0 = Not at all Trouble relaxin = Not at all Being so restless that it is hard to sit still: 0 = Not at all Becoming easily annoyed or irritable: 0 = Not at all Feeling afraid as if something awful might happen: 0 = Not at all Total SHAWNA-7 score (0-4 normal; 5-9 mild; 10-14 moderate; 15-21 severe): 0 Source: Developed by Drs. Jose Streeter, Elizabeth Hutton, Mauricio Ayon and colleagues, with an educational tyson from [employer]. SHAWNA-7 Assessment Billing SHAWNA-7 Assessment Tool: SHAWNA-7 Assessment 81626 Review of Systems Const Denies chills, Denies fatigue, Denies fever(s) and Denies headache(s) ENT Denies dysphagia, Denies dizziness, Denies otalgia, Denies headache(s), Denies neck pain, Denies odynophagia and Denies sore throat Card Denies chest pain, Denies palpitations and Denies dyspnea Resp Denies cough and Denies dyspnea GI Details: (+) on and off abdominal pain and discomfort, mostly around the umbilical area and over the right side of the abdomen lately; notes that her umbilical area is often moist lately Reports constipation (increasing), Denies dysphagia, Denies heartburn, Denies diarrhea, Denies nausea, Denies odynophagia and Denies vomiting Denies difficulty voiding, Denies nocturia and Denies dysuria Musc Denies neck pain Skin/Breast Denies rash Neuro Denies dizziness and Denies headache(s) Endo Denies fatigue and Denies palpitations Physical exam (Primary Care) Vital Signs: Last Vital Signs Pulse 74 11/05/23 13:20 BP 138/80 11/05/23 13:20 Pulse Ox 99 11/05/23 13:20 Oxygen Delivery Method Room Air 11/05/23 13:20 BMI result Body Mass Index 31.3 Tobacco/Smoking Status: Tobacco use Status Tobacco use date assessed 11/05/23 11/05/23 13:25 Patient Tobacco Use Status Never used Tobacco 11/05/23 13:25 e-Cigarette/Vaping Use Never Used 11/05/23 13:25 PHQ-9: PHQ-9 Score PHQ-9: Total score 0 11/05/23 13:25 Depression Screening Interpretation: Negative Thrive Assessment: Date of Thrive Assessment Date Thrive assessed 11/05/23 11/05/23 13:25 Currently or been in a relationship where the following occur: no concerns reported Const General: no acute distress and alert Neck Neck: Yes no lymphadenopathy and Yes supple Resp Auscultation: clear to auscultation bilaterally, no rales and no wheezes Cardio Rate: regular rate Rhythm: regular rhythm Heart sounds: no murmurs GI Other: (+) healing scar noted over the upper inside margin of the umbilicus; no active drainage noted at this time Palpation (GI): Soft to palpation, Tenderness to palpation present (GI) (mild, mostly periumbilical and over the right-side of the abdomen), no guarding and No Rebound tenderness present Auscultation: normal bowel sounds Extrem General: Yes no clubbing, cyanosis or edema Assessment and Plan Assessment & Plan (1) Umbilical pain: Code(s): R10.33 - Periumbilical pain Plan: Patient is advised that she just had surgery (laparoscopic appendectomy) done less than a month ago and that normally, it takes a few months before all post- op pain will resolve completely Advised that for the next few weeks, she should still avoid any strenuous activity or exertion so as not to aggravate any of her post-op wounds Will start her empirically on Mupirocin ointment 2% to apply to the wound at her umbilical area TID x 7 to 10 days to cover for any possible wound discharge/drainage which she reports seeing in her umbilical area on and off lately (2) Right sided abdominal pain: Code(s): R10.9 - Unspecified abdominal pain Plan: Have advised patient that her recent right-sided abdominal pain may also be post-op pain as her appendix is located over her right lower quadrant area Discussed that if she has been constipated lately, this may also be contributing to her abdominal symptoms Will send her for abdominal x-rays for further evaluation but explained that this is more of a precaution and we will check back with her CHARLI should anything unusual come up on her x-rays Advised that she should reach out to Dr. Rasmussen's office as soon as she can to schedule a follow up surgical appt CHARLI as well and to call us back if her symptoms do not improve significantly by early next week or if they continue to get worse over the next few days (3) Constipation: Code(s): K59.00 - Constipation, unspecified Qualifiers: Constipation type: unspecified constipation type Qualified Code(s): K59.00 - Constipation, unspecified Plan: Encouraged increased oral fluids and dietary fiber She is instructed to take her Colace 100 mg BID daily for at least the next 3 to 5 days and if her bowel movements become more consistent, then can take this PRN Plan To return in 1 to 2 months for her next annual physical examination Orders: Orders XR abdomen min 2V Today R10.9 - Unspecified abdominal pain Medications: New mupirocin 2% Apply to wound at the umbilical area topically 3 times a day for 7 to 10 days 10 days 22 grams 0RF Coding Level of Care Code Est Pt Level 3 (13206) Diagnoses Umbilical pain R10.33 Right sided abdominal pain R10.9 Constipation, unspecified constipation type K59.00 Constipation type: unspecified constipation type Additional Codes SHAWNA-7 Assessment Billing - SHAWNA-7 Assessment Tool: SHAWNA-7 Assessment [id number] ([id number])
== END 2023-11-05 14:01 | disposition home or self-care (01) ==
PROVIDERS: PCP Internal Medicine; Visit Provider Internal Medicine
DX: R10.33 Periumbilical pain (principal); R10.9 Unspecified abdominal pain; K59.00 Constipation, unspecified
CPT/HCPCS: 99213

== ENCOUNTER 2023-11-05 14:08 | Outpatient (REF) | payer BC, SELFPAY ==
--- NOTE | ~2023-11-05 | XR_ITS ---
EXAMINATION: XR ABDOMEN COMPLETE CLINICAL INDICATION: Unspecified abdominal pain Status post appendectomy 2-3 weeks ago Complaints of increased right-sided abdominal pain and discomfort lately COMPARISON: CT scan of the abdomen and pelvis 10/10/2023 TECHNIQUE: 2 views of the abdomen. FINDINGS: There is no free air under the diaphragm. The lung bases are clear. The bowel gas pattern is normal with no evidence of ileus or obstruction. There is a small amount of stool within the ascending colon. A few anastomotic sutures are seen in the right lower quadrant with slight soft tissue fullness surrounding the sutures. A few surgical clips are seen in the right upper quadrant. No unusual soft tissue calcifications are noted. The bones are unremarkable. XR/XR abdomen min 2V IMPRESSION: There are a fewer anastomotic sutures in the right lower quadrant with surrounding soft tissue fullness.? Fluid collection. CT scan of the abdomen and pelvis could be performed for further evaluation.
== END 2023-11-05 14:09 | disposition home or self-care (01) ==
LOC: HO.XRAY 14:08
PROVIDERS: PCP Internal Medicine; Visit Provider Internal Medicine
DX: R10.9 Unspecified abdominal pain (principal)
CPT/HCPCS: 74019

== ENCOUNTER 2023-11-07 06:19 | Outpatient (REF) | payer BC, SELFPAY ==
--- NOTE | ~2023-11-07 | CT_ITS ---
EXAMINATION: CT ABDOMEN AND PELVIS WITH CONTRAST CLINICAL INFORMATION: soft tissue fullness over RLQ on x-ray; S/P lap appendectomy 3 weeks ago; c/o right-sided abd pain x 5 days COMPARISON: KUB 11/05/2023: There are a fewer anastomotic sutures in the right lower quadrant with surrounding soft tissue fullness.? Fluid collection. CT scan of the abdomen and pelvis could be performed for further evaluation. CT abdomen pelvis 10/10/2023 TECHNIQUE: Multidetector volumetric images were obtained from the superior aspect of the liver through the pubic symphysis following administration 85 mL of Omnipaque 350 intravenous contrast. Sagittal and coronal reformatted images were obtained on the technologist's workstation. Oral contrast: No This CT examination was performed using dose optimization techniques as appropriate, variously including the following: *Automated exposure control *Adjustment of mA and/or kV according to patient size (this includes techniques or standardized protocols for targeted exams where dose is matched to indication/reason for exam; i.e. extremities or head) *Use of iterative reconstruction technique DLP: 581 mGy-cm FINDINGS: LUNG BASES: The visualized lung bases are unremarkable. LIVER, GALLBLADDER, AND BILIARY TREE: The liver is normal in size, shape, and attenuation. No focal hepatic lesion or biliary ductal dilatation is present. The gallbladder is underdistended with no evidence of radiopaque gallstones or obvious pericholecystic inflammatory changes. Surgical clips are again seen just beneath the gallbladder. PANCREAS: Unremarkable. SPLEEN: Unremarkable. ADRENAL GLANDS: Unremarkable. KIDNEYS AND URETERS: The kidneys are normal in size, shape, and attenuation. No hydronephrosis, hydroureter, or calculi seen. No perinephric stranding. BLADDER: Unremarkable. GASTROINTESTINAL TRACT: The small and large bowel are unremarkable. The appendix is no longer present. No retroperitoneal hematoma or fluid collection is seen. ABDOMINAL WALL: No significant hernia is appreciated. Small periumbilical hematoma is seen measuring 3.2 x 2.4 x 1.5 cm, presumably at entry site for laparoscope. LYMPH NODES: Normal. VASCULAR: Unremarkable. PELVIC VISCERA: Unremarkable. OSSEOUS STRUCTURES: Unremarkable. CT/CT abdomen pelvis w IV con IMPRESSION: 1. Small periumbilical hematoma, presumably at entry site for laparoscope. 2. No retroperitoneal hematoma or fluid collection is seen. 3. The appendix is no longer present. 4. Other incidental findings as described above. Fleischner guidelines were followed.
[2023-11-07] MEDS: iohexoL 350 MG/ML 100 ML INFUS..BTL 85 ML IV (08:50)
[2023-11-07] MEDS: Barium Sulfate Oral (Vanilla) 450 ML ORAL.SUSP 900 ML PO (08:50)
== END 2023-11-07 06:20 | disposition home or self-care (01) ==
LOC: HO.CT 06:19
PROVIDERS: PCP Internal Medicine; Visit Provider Internal Medicine
DX: R93.5 Abnormal findings on diagnostic imaging of other abdominal regions, including retroperitoneum (principal); R10.9 Unspecified abdominal pain
CPT/HCPCS: 74177; Q9967

== ENCOUNTER 2023-12-06 14:49 | Outpatient (AMB) | payer BC, SELFPAY ==
[2023-12-06 14:52] VITALS: BP 120/84; PULSE 87; O2SAT 99; BMI 30.5
--- NOTE | 2023-12-06 14:52 | MHC.PC.OV ---
Vital Signs 12/06/23 14:52 Height 5 ft 5 in Weight 183 lb 2 oz BMI 30.5 BP 120/84 Blood Pressure Location Lt brachial Position Sitting Pulse 87 Pulse Source Pulse Oximeter Pulse Oximetry (%) 99 Oxygen Delivery Method Room Air Intake Visit Reasons: pe Naturopathic Doctor Required: No Accompanied by: Self / Same As Patient Allergies No Known Allergies Allergy (Verified 12/06/23 15:12) Medication List - Last Reconciled 12/06/23 by Stefan Downing MD No Known Home Meds Tobacco use date assessed: 12/06/23 Dental Screening Dental Screen Date: 12/06/23 Did you have a dental visit in the last 12 months?: Yes Did you have a dental problem in the last 6 months where you did not have access to dental care?: No Was dental information given to patient?: Patient has dentist HPI pe HPI Details Patient comes in today for her annual physical examination (employment PE) States that she feels okay and that she is now completely recovered from her laparoscopic appendectomy done in September 2023 She denies any headaches or dizziness Denies any chest pains, no SOB No nausea/vomiting, no abdominal pain No change in bowel habits noted Denies any acute urinary symptoms She will need to have a PPD skin test done to complete her employment physical She last had her gynecology exam/pap smear done in April 2021 and has not been back to see gynecology since (looks like she missed her appt back in April 2022 and has never rescheduled her appointment) Patient also has (+) Hx of seropositive RA and was taking Prednisone and Methotrexate in the past but states that she has lost a lot of weight over the past couple of years and her joint pains and swelling seem to have all resolved with her weight loss and she has not been taking or needed to take anything for her rheumatoid arthritis in the past couple of years now [facility] Medical History (Updated 12/08/23 @ 12:31 by Stefan Downing MD) Seropositive rheumatoid arthritis Obesity (BMI 30-39.9) Elevated blood pressure reading Hx of gallstones Arthritis Surgical History (Updated 12/08/23 @ 12:33 by Stefan Downing MD) History of laparoscopic appendectomy (~10/10/23) History of section History of tubal ligation History of cholecystectomy Family History Mother Uterine cancer Father No problems noted. Mother Ovarian cancer Diabetes Hypertension Maternal Grandmother Mental health disorder Maternal Uncle Mental health disorder Social History Housing: House Alcohol intake: never Patient Tobacco Use Status: Never used Tobacco e-Cigarette/Vaping Use: Never Used Second Hand Smoke Exposure: No service: No Current occupational status: employed Gender identity: Female Cognitive needs: No Hearing needs: No Vision needs: No Female Reproductive History Menstrual Age of Menarche: 10 Questionnaire PHQ-9 Over the last 2 weeks, how often have you been bothered by any of the following problems? 1. Little interest or pleasure in doing things: not at all 2. Feeling down, depressed, or hopeless: not at all 3. Trouble falling or staying asleep, or sleeping too much: not at all 4. Feeling tired or having little energy: not at all 5. Poor appetite or overeating: not at all 6. Feeling bad about yourself - or that you are a failure or have let yourself or your family down: not at all 7. Trouble concentrating on things, such as reading the newspaper or watching television: not at all 8. Moving or speaking so slowly that other people could have noticed. Or the opposite - being so fidgety or restless that you have been moving around a lot more than usual: not at all 9. Thoughts that you would be better off or of hurting yourself in some way: not at all Total score: 0 Depression Screening Interpretation: Negative Depression Screening Done: Yes 17805 - PHQ-9 Billing: Yes Source: Developed by Drs. Jose Streeter, Elizabeth Hutton, Mauricio Ayon and colleagues, with an educational tyson from [employer]. Thrive Questionnaire Date Thrive assessed: 12/06/23 I am a: Patient What is your living situation today?: I have a steady place to live Within the past 12 months, did the food you bought not last and you didn't have the money to get more?: Never true Within the past 12 months, did you worry whether your food would run out before you got money to buy more?: Never true Do you have trouble paying for medicines?: No Do you have trouble getting transportation to medical appointments?: No Do you have trouble paying your heating and electricity bill?: No Do you have trouble taking care of your child, family member or friend?: No Do you have trouble with day-to-day activities such as bathing, preparing meals, shopping, managing finances, etc.?: No Are you currently unemployed and looking for a job?: No Are you interested in more education?: No Please select the resources that you would like help with: None Currently or been in a relationship where the following occur: no concerns reported THRIVE Score: 0 AUDIT C Alcohol Use Questionnaire (AUDIT-C) 1. How often do you have a drink containing alcohol?: Never Total Score: 0 Score Reviewed/Action Taken: Yes SHAWNA-7 AMB Questionnaire SHAWNA-7 Date SHAWNA - 7 assessed: 12/06/23 Feeling nervous, anxious, or on edge: 0 = Not at all Not being able to stop or control worryin = Not at all Worrying too much about different things: 0 = Not at all Trouble relaxin = Not at all Being so restless that it is hard to sit still: 0 = Not at all Becoming easily annoyed or irritable: 0 = Not at all Feeling afraid as if something awful might happen: 0 = Not at all Total SHAWNA-7 score (0-4 normal; 5-9 mild; 10-14 moderate; 15-21 severe): 0 Source: Developed by Drs. Jose Streeter, Elizabeth Hutton, Mauricio Ayon and colleagues, with an educational tyson from [employer]. SHAWNA-7 Assessment Billing SHAWNA-7 Assessment Tool: SHAWNA-7 Assessment 63132 Review of Systems Const Denies chills, Denies fatigue, Denies fever(s), Denies headache(s) and Denies malaise Eyes Denies blurry vision, Denies change in vision, Denies irritation and Denies itchy eyes ENT Denies dysphagia, Denies dizziness, Denies otalgia, Denies headache(s), Denies nasal congestion, Denies neck pain, Denies odynophagia, Denies sinus pain and Denies sore throat Card Denies chest pain, Denies rapid heart rate, Denies irregular heart rhythm, Denies palpitations and Denies dyspnea Resp Denies chest congestion, Denies cough, Denies dyspnea and Denies wheezing GI Denies abdominal pain, Denies bloating, Denies constipation, Denies dysphagia, Denies heartburn, Denies diarrhea, Denies nausea, Denies odynophagia and Denies vomiting Denies hematuria, Denies urinary frequency, Denies dysuria, Denies urinary incontinence and Denies urinary urgency Musc Denies back pain, Denies arthralgias, Denies joint swelling, Denies muscle weakness and Denies neck pain Skin/Breast Denies breast pain, Denies breast mass, Denies change in pigmentation, Denies lesions, Denies rash and Denies unusual bruising Neuro Denies dizziness, Denies headache(s) and Denies paresthesias Psych Denies anxiety and Denies depression Endo Denies fatigue and Denies palpitations Niraj/Lymph Denies easy bruising Aller/Immun Denies itchy eyes and Denies wheezing Physical exam (Primary Care) Vital Signs: Last Vital Signs Pulse 87 12/06/23 14:52 BP 120/84 12/06/23 14:52 Pulse Ox 99 12/06/23 14:52 Oxygen Delivery Method Room Air 12/06/23 14:52 BMI result Body Mass Index 30.5 Tobacco/Smoking Status: Tobacco use Status Tobacco use date assessed 12/06/23 12/06/23 14:54 Patient Tobacco Use Status Never used Tobacco 12/06/23 14:54 e-Cigarette/Vaping Use Never Used 12/06/23 14:54 PHQ-9: PHQ-9 Score PHQ-9: Total score 0 12/06/23 16:17 Depression Screening Interpretation: Negative Thrive Assessment: Date of Thrive Assessment Date Thrive assessed 12/06/23 12/06/23 14:54 Currently or been in a relationship where the following occur: no concerns reported Const General: no acute distress, alert and awake Orientation/consciousness: patient oriented x3 HENMT Head: Yes normocephalic and Yes atraumatic Ears: external ears normal, TM's normal bilaterally and EAC's normal General nose exam: No nasal discharge present Face and sinus: Yes normal facial exam and Yes sinuses nontender Teeth and gingiva: dentition normal Throat: Yes posterior oropharynx normal and Yes tonsils normal (no TP congestion) Eyes Eyelids: Yes eyelids normal Conjunctivae: conjunctivae normal Pupils: Equal, round and reactive pupils present EOM: EOMs intact bilaterally Neck Neck: Yes no lymphadenopathy and Yes supple Thyroid: Thyroid normal Resp Auscultation: clear to auscultation bilaterally, no rales and no wheezes Cardio Rate: regular rate Rhythm: regular rhythm Heart sounds: no murmurs GI Palpation (GI): Soft to palpation, nontender and No hepatosplenomegaly present Auscultation: normal bowel sounds General: Yes no CVA tenderness Back/Spine/Pelvis Back: no CVA tenderness Thoracic/Lumbar Spine: thoracic and lumbar spine normal to inspection Skin Lesions: no lesions Rashes: no rashes Neuro General: patient oriented x3, moves all extremities, no focal motor deficits and CN's II-XI intact bilaterally Cranial nerves: Yes Equal, round and reactive pupils present Cognition (Neuro): normal cognition Gait exam (Neuro): Normal gait present Extrem General: Yes no clubbing, cyanosis or edema Office Meds tuberculin PPD 5 tub. unit/0.1 mL intradermal injection solution Performing Provider: Stefan Downing MD [facility] [place] Administered by: Kat Verduzco RN on 12/06/23 15:41 Dose Route Admin Location Dispensed Lot Number Expiration Date NDC Telemarketer Supervisor 0.1 mL intradermal 0.1 mL [id number] 10/19/26 82619-631-63 [employer] Assessment and Plan Assessment & Plan (1) Annual physical exam: Code(s): Z00.00 - Encounter for general adult medical examination without abnormal findings Plan: Check labs She is advised to contact her [employer] worker's office to reschedule her annual pap smear and gynecology exam CHARLI She is not yet due to start her annual mammogram for breast cancer screening yet - will be starting this at age 39 (next year) (2) Seropositive rheumatoid arthritis: Comment: was on oral Prednisone and Methotrexate in the past - last seen by Dr. Justin for rheumatology follow up in 1999 Code(s): M05.9 - Rheumatoid arthritis with rheumatoid factor, unspecified Plan: (+) Hx of seropositive RA and she was taking oral Prednisone and Methotrexate in the past (was last seen by Dr. Justin in 2019) but states that she has lost a lot of weight over the past few years and her joint pains and swelling seem to have all resolved with her weight loss and she has not been taking or needed to take anything for her rheumatoid arthritis in the past couple of years now Will recheck her serum RA markers and rheumatoid factor level for follow up (3) Elevated blood pressure reading: Code(s): R03.0 - Elevated blood-pressure reading, without diagnosis of hypertension Plan: Her BP appears much better controlled today Reinforced low sodium diet Patient is reminded to continue monitoring her blood pressure regularly (4) Constipation: Code(s): K59.00 - Constipation, unspecified Qualifiers: Constipation type: unspecified constipation type Qualified Code(s): K59.00 - Constipation, unspecified Plan: Resolved She is encouraged to continue to increase her oral fluids and dietary fiber intake (5) Obesity (BMI 30-39.9): Code(s): E66.9 - Obesity, unspecified Plan: Reinforced diet/exercise as tolerated/lose weight Plan To return in 1 year for her next annual physical examination unless her labs show anything unexpected Orders: Orders Lipid Panel 12/06/23 E78.00 - Pure hypercholesterolemia, unspecified, Z00.00 - Encounter for general adult medical examination without abnormal findings TSH reflex Free T4 12/06/23 Z00.00 - Encounter for general adult medical examination without abnormal findings UA CC w/rflx Micro + Cult 12/06/23 R30.0 - Dysuria, Z00.00 - Encounter for general adult medical examination without abnormal findings Vitamin D 25-OH Total 12/06/23 E55.9 - Vitamin D deficiency, unspecified, Z00.00 - Encounter for general adult medical examination without abnormal findings Rheumatoid Factor 12/06/23 M05.9 - Rheumatoid arthritis with rheumatoid factor, unspecified PHIL Reflex Titer and Pattern 12/06/23 M05.9 - Rheumatoid arthritis with rheumatoid factor, unspecified Complete Blood Count Auto Diff 12/06/23 D64.9 - Anemia, unspecified, Z00.00 - Encounter for general adult medical examination without abnormal findings Comprehensive [place]. Panel Fast 12/06/23 Z00.00 - Encounter for general adult medical examination without abnormal findings C Reactive Protein 12/06/23 M05.9 - Rheumatoid arthritis with rheumatoid factor, unspecified Erythrocyte Sedimentation Rate 12/06/23 M05.9 - Rheumatoid arthritis with rheumatoid factor, unspecified Cyclic Citrullinated Peptide 12/06/23 M05.9 - Rheumatoid arthritis with rheumatoid factor, unspecified AMB PPD Planted 12/06/23 Z11.1 - Encounter for screening for respiratory tuberculosis Coding Level of Care Code Est Pt Prev Care [id number]([id number]) Diagnoses Annual physical exam Z00.00 Seropositive rheumatoid arthritis M05.9 Elevated blood pressure reading R03.0 Constipation, unspecified constipation type K59.00 Constipation type: unspecified constipation type Obesity (BMI 30-39.9) E66.9 Additional Codes SHAWNA-7 Assessment Billing - SHAWNA-7 Assessment Tool: SHAWNA-7 Assessment 27577 ([id number])
== END 2023-12-06 15:32 | disposition home or self-care (01) ==
PROVIDERS: PCP Internal Medicine; Visit Provider Internal Medicine
DX: Z11.1 Encounter for screening for respiratory tuberculosis (principal)
CPT/HCPCS: 86580; 99395

== ENCOUNTER 2025-02-25 11:00 | Outpatient (REF) | payer BC, SELFPAY ==
[2025-02-25 11:56] LABS: MANUAL DIFF FLAG NO
[2025-02-25 12:09] LABS: Basophils Absolute Auto 0.1 X10*3/uL (0.0-0.2); Basophils Percent Auto 0.7 % (0-2); Eosinophils Absolute Auto 0.2 X10*3/uL (0.0-0.4); Eosinophils Percent Auto 2.7 % (0-4); Hematocrit 38.5 % (37.0-47.0); Hemoglobin 12.4 g/dl (12.0-16.0); Imm Gran Abs Auto 0.03 X10*3/uL (0.00-0.03); Imm Gran Pct Auto 0.3 % (0.0-0.4); Lymphocytes Absolute Auto 2.1 X10*3/uL (1.2-4.9); Mean Corpuscular HGB Conc 32.2 g/dl (31.0-35.0); Mean Corpuscular Hemoglobin 25.7 pg (27.0-33.0); Mean Corpuscular Volume 79.9 fL (80.0-98.0); Mean Platelet Volume 9.9 fL (9.4-12.3); Monocytes Absolute Auto 0.7 X10*3/uL (0.1-1.2); Monocytes Percent Auto 8.1 % (2-11); Neutrophils Absolute Auto 5.7 x10*3/uL (2.0-8.3); Neutrophils Percent Auto 64.2 % (45-73); Platelet Count 372 X10*3/uL (160-400); Red Blood Count 4.82 X10*6/uL (4.20-5.50); Red Cell Distribution Width 14.8 % (11.0-16.0); White Blood Count 8.8 X10*3/uL (4.8-10.8)
[2025-02-25 12:46] LABS: Erythrocyte Sedimentation Rate 16 MM/HR (0-20)
[2025-02-25 12:55] LABS: Rheumatoid Factor 17.1 IU/mL (<15.0)
[2025-02-25 13:06] LABS: Alanine Aminotransferase 18 U/L (0-31); Albumin Level 4.5 g/dL (3.5-5.0); Alkaline Phosphatase 64 U/L (39-117); Anion Gap 11 (12-20); Aspartate Amino Transferase 19 U/L (5-31); Bilirubin Total 0.2 mg/dL (0.0-1.0); Blood Urea Nitrogen 10 mg/dL (9-16); C Reactive Protein 0.27 mg/dL (< or = 0.50); Calcium 9.8 mg/dL (8.4-10.2); Carbon Dioxide 27 mmol/L (22-29); Chloride 104 mmol/L (96-108); Cholesterol 197 mg/dL (<200); Estimated Glomerular Filt Rate > 60; Glucose Fasting 81 mg/dL (60-99); HDL Cholesterol 56 mg/dL (>40); LDL Cholesterol Calculated 125 mg/dL (<100); Potassium 4.3 mmol/L (3.3-5.1); Sodium 138 mmol/L (135-145); Total Protein 8.2 g/dL (6.5-8.0); Triglycerides 82 mg/dL (<150)
[2025-02-25 13:08] LABS: Appearance Urine Clear; Color Urine Yellow; Glucose Urine UA Negative (Negative); Leukocyte Esterase Urine Negative (Negative); Nitrite Urine Negative (Negative); Urine Blood Negative (Negative); Urine Ketones Negative (Negative); Urine Protein Negative (Neg-Trace)
[2025-02-25 13:23] LABS: TSH reflex Free T4 2.87 uIU/mL (0.32-4.0); Vitamin D 25-OH Total 21.3 ng/mL (>30)
[2025-02-26 20:39] LABS: Cyclic Citrullinated Peptide <16 UNITS
[2025-03-01 11:14] LABS: Anti Nuclear Antibody Screen NEGATIVE (NEGATIVE)
== END 2025-02-25 11:01 | disposition home or self-care (01) ==
LOC: HO.LAB 11:00
PROVIDERS: PCP Internal Medicine; Visit Provider Internal Medicine
DX: Z00.00 Encounter for general adult medical examination without abnormal findings (principal); M05.9 Rheumatoid arthritis with rheumatoid factor, unspecified; E66.9 Obesity, unspecified; Z68.31 Body mass index [BMI] 31.0-31.9, adult; D64.9 Anemia, unspecified; E55.9 Vitamin D deficiency, unspecified; E78.00 Pure hypercholesterolemia, unspecified; M25.50 Pain in unspecified joint; R30.0 Dysuria; M79.7 Fibromyalgia
CPT/HCPCS: 36415; 80053; 80061; 81003; 82306; 84443; 85025; 85652; 86038; 86140; 86200; 86431; 96127

== ENCOUNTER 2025-02-25 11:00 | Outpatient (AMB) | payer BC, SELFPAY ==
[2025-02-25 11:02] VITALS: BP 126/84; PULSE 73; O2SAT 99; BMI 31.5
--- NOTE | 2025-02-25 11:02 | MHC.PC.OV ---
Vital Signs 02/25/25 11:02 Height 5 ft 5 in Weight 189 lb 6 oz BMI 31.5 BP 126/84 Blood Pressure Location Lt brachial Position Sitting Pulse 73 Pulse Source Pulse Oximeter Pulse Oximetry (%) 99 Oxygen Delivery Method Room Air Intake Visit Reasons: annual exam Title I Assistant Required: No Accompanied by: Self / Same As Patient Allergies No Known Allergies Allergy (Verified 02/25/25 11:29) Medication List - Last Reconciled 02/25/25 by Stefan Downing MD No Known Home Meds Tobacco use date assessed: 02/25/25 Dental Screening Dental Screen Date: 02/25/25 Did you have a dental visit in the last 12 months?: Yes Did you have a dental problem in the last 6 months where you did not have access to dental care?: No Was dental information given to patient?: Patient has dentist HPI annual exam HPI Details Patient comes in today for her annual physical examination States that she feels okay She denies any headaches or dizziness Denies any chest pains, no SOB No nausea/vomiting, no abdominal pain No change in bowel habits noted Denies any acute urinary symptoms She last had her gynecology exam/pap smear done in April 2021 and has not been back to see gynecology since (it appears that she missed her appt back in April 2022 and has never rescheduled her appointment since) She is also now due to start breast cancer screening Patient also has (+) Hx of seropositive RA and was taking Prednisone and Methotrexate in the past but states that she has lost a lot of weight over the past couple of years and her joint pains and swelling appear to have all resolved (with her weight loss) and she has not been taking or needed to take anything for her rheumatoid arthritis in the past 2 to 3 years although she did experience some pain in her hands/fingers a few days ago while she was carrying some crate and she had to immediately set it down She was not able to get her labs done when they were ordered last year [facility] Medical History Seropositive rheumatoid arthritis Obesity (BMI 30-39.9) Elevated blood pressure reading Hx of gallstones Arthritis Surgical History History of laparoscopic appendectomy (~10/10/23) History of section History of tubal ligation History of cholecystectomy Family History Mother Uterine cancer Father No problems noted. Mother Ovarian cancer Diabetes Hypertension Maternal Grandmother Mental health disorder Maternal Uncle Mental health disorder Social History Housing: House Alcohol intake: never Patient Tobacco Use Status: Never used Tobacco e-Cigarette/Vaping Use: Never Used Second Hand Smoke Exposure: No service: No Current occupational status: employed Gender identity: Female Cognitive needs: No Hearing needs: No Vision needs: No Female Reproductive History Menstrual Age of Menarche: 10 Questionnaire PHQ-9 Over the last 2 weeks, how often have you been bothered by any of the following problems? 1. Little interest or pleasure in doing things: not at all 2. Feeling down, depressed, or hopeless: not at all 3. Trouble falling or staying asleep, or sleeping too much: not at all 4. Feeling tired or having little energy: not at all 5. Poor appetite or overeating: not at all 6. Feeling bad about yourself - or that you are a failure or have let yourself or your family down: not at all 7. Trouble concentrating on things, such as reading the newspaper or watching television: not at all 8. Moving or speaking so slowly that other people could have noticed. Or the opposite - being so fidgety or restless that you have been moving around a lot more than usual: not at all 9. Thoughts that you would be better off or of hurting yourself in some way: not at all Total score: 0 Depression Screening Interpretation: Negative Depression Screening Done: Yes 90835 - PHQ-9 Billing: Yes Source: Developed by Drs. Jose Streeetr, Elizabeth Hutton, Mauricio Ayon and colleagues, with an educational tyson from [employer]. Thrive Questionnaire Date Thrive assessed: 02/25/25 I am a: Patient What is your living situation today?: I have a steady place to live Within the past 12 months, did the food you bought not last and you didn't have the money to get more?: Often true Within the past 12 months, did you worry whether your food would run out before you got money to buy more?: Never true Do you have trouble paying for medicines?: No Do you have trouble getting transportation to medical appointments?: No Do you have trouble paying your heating and electricity bill?: No Do you have trouble taking care of your child, family member or friend?: No Do you have trouble with day-to-day activities such as bathing, preparing meals, shopping, managing finances, etc.?: No Are you currently unemployed and looking for a job?: No Are you interested in more education?: No Please select the resources that you would like help with: None Currently or been in a relationship where the following occur: No concerns reported THRIVE Score: 1 AUDIT C Alcohol Use Questionnaire (AUDIT-C) 1. How often do you have a drink containing alcohol?: Never 3. How often do you have six or more drinks on one occasion?: Never Total Score: 0 Score Reviewed/Action Taken: Yes SHAWNA-7 AMB Questionnaire SHAWNA-7 Date SHAWNA - 7 assessed: 02/25/25 Feeling nervous, anxious, or on edge: 0 = Not at all Not being able to stop or control worryin = Not at all Worrying too much about different things: 0 = Not at all Trouble relaxin = Not at all Being so restless that it is hard to sit still: 0 = Not at all Becoming easily annoyed or irritable: 0 = Not at all Feeling afraid as if something awful might happen: 0 = Not at all Total SHAWNA-7 score (0-4 normal; 5-9 mild; 10-14 moderate; 15-21 severe): 0 Source: Developed by Drs. Jose Streeter, lEizabeth Hutton, Mauricio Ayon and colleagues, with an educational tyson from [employer]. Review of Systems Const Denies chills, Denies fatigue, Denies fever(s), Denies headache(s) and Denies malaise Eyes Denies blurry vision, Denies change in vision, Denies irritation and Denies itchy eyes ENT Denies dysphagia, Denies dizziness, Denies otalgia, Denies headache(s), Denies nasal congestion, Denies neck pain, Denies odynophagia, Denies sinus pain and Denies sore throat Card Denies chest pain, Denies rapid heart rate, Denies irregular heart rhythm, Denies palpitations and Denies dyspnea Resp Denies chest congestion, Denies cough, Denies dyspnea and Denies wheezing GI Denies abdominal pain, Denies bloating, Denies constipation, Denies dysphagia, Denies heartburn, Denies diarrhea, Denies nausea, Denies odynophagia and Denies vomiting Denies hematuria, Denies urinary frequency, Denies dysuria, Denies urinary incontinence and Denies urinary urgency Musc Reports as per HPI, Denies back pain, Reports arthralgias ((+) sharp pains in hands/fingers a few days ago while carrying a crate), Denies joint swelling, Denies muscle weakness and Denies neck pain Skin/Breast Denies breast pain, Denies breast mass, Denies change in pigmentation, Denies lesions, Denies rash and Denies unusual bruising Neuro Denies dizziness, Denies headache(s) and Denies paresthesias Psych Denies anxiety and Denies depression Endo Denies fatigue and Denies palpitations Niraj/Lymph Denies easy bruising Aller/Immun Denies itchy eyes and Denies wheezing Physical exam (Primary Care) Vital Signs: Last Vital Signs Pulse 73 02/25/25 11:02 BP 126/84 02/25/25 11:02 Pulse Ox 99 02/25/25 11:02 Oxygen Delivery Method Room Air 02/25/25 11:02 BMI result Body Mass Index 31.5 Tobacco/Smoking Status: Tobacco use Status Tobacco use date assessed 02/25/25 02/25/25 11:05 Patient Tobacco Use Status Never used Tobacco 02/25/25 11:05 e-Cigarette/Vaping Use Never Used 02/25/25 11:05 PHQ-9: PHQ-9 Score PHQ-9: Total score 0 02/25/25 11:05 Depression Screening Interpretation: Negative Thrive Assessment: Date of Thrive Assessment Date Thrive assessed 02/25/25 02/25/25 11:05 Currently or been in a relationship where the following occur: No concerns reported Const General: no acute distress, alert and awake Orientation/consciousness: patient oriented x3 HENMT Head: Yes normocephalic and Yes atraumatic Ears: external ears normal, TM's normal bilaterally and EAC's normal General nose exam: No nasal discharge present Face and sinus: Yes normal facial exam and Yes sinuses nontender Teeth and gingiva: dentition normal Throat: Yes posterior oropharynx normal and Yes tonsils normal (no TP congestion) Eyes Eyelids: Yes eyelids normal Conjunctivae: conjunctivae normal Pupils: Equal, round and reactive pupils present EOM: EOMs intact bilaterally Neck Neck: Yes no lymphadenopathy and Yes supple Thyroid: Thyroid normal Resp Auscultation: clear to auscultation bilaterally, no rales and no wheezes Cardio Rate: regular rate Rhythm: regular rhythm Heart sounds: no murmurs GI Palpation (GI): Soft to palpation, nontender and No hepatosplenomegaly present Auscultation: normal bowel sounds General: Yes no CVA tenderness Back/Spine/Pelvis Back: no CVA tenderness Thoracic/Lumbar Spine: thoracic and lumbar spine normal to inspection Skin Lesions: no lesions Rashes: no rashes Neuro General: patient oriented x3, moves all extremities, no focal motor deficits and CN's II-XI intact bilaterally Cranial nerves: Yes Equal, round and reactive pupils present Cognition (Neuro): normal cognition Gait exam (Neuro): Normal gait present Extrem General: Yes no clubbing, cyanosis or edema Right upper extremity: normal to inspection and no joint enlargement; no edema Left upper extremity: normal to inspection and no joint enlargement; no edema Coding Level of Care Code Est Pt Prev Care 40-64y(19268) Diagnoses Annual physical exam Z00.00 Seropositive rheumatoid arthritis M05.9 Obesity (BMI 30-39.9) E66.9 Breast cancer screening by mammogram Z12.31 Cervical cancer screening Z12.4 Additional Codes PHQ-9 - 17361 - PHQ-9 Billing: Yes ([id number]) Assessment & Plan Assessment & Plan (1) Annual physical exam: Code(s): Z00.00 - Encounter for general adult medical examination without abnormal findings Category: Medical Plan: Check labs She is overdue for her yearly gynecology exam and pap smear and will be referred for this She is also due to start her annual breast cancer screening (2) Seropositive rheumatoid arthritis: Comment: was on oral Prednisone and Methotrexate in the past - last seen by Dr. Justin for rheumatology follow up in 1999 Code(s): M05.9 - Rheumatoid arthritis with rheumatoid factor, unspecified Category: Medical Plan: (+) Hx of seropositive RA and she was taking oral Prednisone and Methotrexate in the past (was last seen by Dr. Justin in 2020) but states that she has lost a lot of weight over the past few years and her joint pains and swelling seem to have all resolved with her weight loss and she has not been taking or needed to take anything for her rheumatoid arthritis in the past couple of years now Will recheck her serum RA markers and rheumatoid factor level for follow up and if these are still positive, will consider referring her back to rheumatology (3) Obesity (BMI 30-39.9): Code(s): E66.9 - Obesity, unspecified Category: Medical Plan: Reinforced diet/exercise as tolerated/lose weight (4) Breast cancer screening by mammogram: Code(s): Z12.31 - Encounter for screening mammogram for malignant neoplasm of breast Category: Medical Plan: She is now due to start annual breast cancer screening - mammogram ordered (5) Cervical cancer screening: Code(s): Z12.4 - Encounter for screening for malignant neoplasm of cervix Category: Medical Plan: [facility] also [facility]necololgy exam and pap smear updated Plan To return in 1 year for her next annual physical examination Orders: Orders MM tomosynthesis screening BI Today Z12.31 - Encounter for screening mammogram for malignant neoplasm of breast Complete Blood Count Auto Diff Today D64.9 - Anemia, unspecified, Z00.00 - Encounter for general adult medical examination without abnormal findings Vitamin D 25-OH Total Today E55.9 - Vitamin D deficiency, unspecified, Z00.00 - Encounter for general adult medical examination without abnormal findings PHIL Reflex Titer and Pattern Today M05.9 - Rheumatoid arthritis with rheumatoid factor, unspecified Rheumatoid Factor Today M05.9 - Rheumatoid arthritis with rheumatoid factor, unspecified Cyclic Citrullinated Peptide Today M05.9 - Rheumatoid arthritis with rheumatoid factor, unspecified, M25.50 - Pain in unspecified joint Comprehensive [place]. Panel Fast Today E78.00 - Pure hypercholesterolemia, unspecified, Z00.00 - Encounter for general adult medical examination without abnormal findings Lipid Panel Today E78.00 - Pure hypercholesterolemia, unspecified, Z00.00 - Encounter for general adult medical examination without abnormal findings TSH reflex Free T4 Today E78.00 - Pure hypercholesterolemia, unspecified, Z00.00 - Encounter for general adult medical examination without abnormal findings UA CC w/rflx Micro + Cult Today R30.0 - Dysuria, Z00.00 - Encounter for general adult medical examination without abnormal findings C Reactive Protein Today M05.9 - Rheumatoid arthritis with rheumatoid factor, unspecified Erythrocyte Sedimentation Rate Today M05.9 - Rheumatoid arthritis with rheumatoid factor, unspecified, M79.7 - Fibromyalgia Referrals [employer] [facility] Referral Z12.4 - Encounter for screening for malignant neoplasm of cervix
== END 2025-02-25 11:36 | disposition home or self-care (01) ==
LOC: HO.HMCH 11:01
PROVIDERS: PCP Internal Medicine; Visit Provider Internal Medicine
DX: Z00.00 Encounter for general adult medical examination without abnormal findings (principal); M05.9 Rheumatoid arthritis with rheumatoid factor, unspecified; E66.9 Obesity, unspecified; Z68.31 Body mass index [BMI] 31.0-31.9, adult; Z12.31 Encounter for screening mammogram for malignant neoplasm of breast

== ENCOUNTER 2025-05-13 08:27 | Outpatient (REF) | payer BC, SELFPAY | END 2025-05-13 08:28 | disposition home or self-care (01) | LOC: HO.MAMMO 08:27 | PROVIDERS: PCP Internal Medicine; Visit Provider Internal Medicine | DX: Z12.31 Encounter for screening mammogram for malignant neoplasm of breast (principal) | CPT/HCPCS: 77063; 77067 ==

== ENCOUNTER → 2025-05-13 08:45 | Outpatient (BNV) | payer BC, SELFPAY | PROVIDERS: PCP Internal Medicine; Visit Provider Internal Medicine | DX: Z12.31 Encounter for screening mammogram for malignant neoplasm of breast (principal) | CPT/HCPCS: 77063; 77067 ==